=== PATIENT | female | born 1940 | race Caucasian/White ===

== ENCOUNTER → 2016-10-11 | Outpatient (REF) ==
[~2016-10-11] MED LIST: ASPIRIN 81M81 MG/TA2 PO; CELEXA 20MG20 MG/TAB PO; DESYREL 50MG50 MG PO; DITROPAN 5MG TAB5 MG PO; FLONASE NASAL S16 GM NS; FOLIC ACID 40400 MCG PO; KLONOPIN 0.5MG0.5 MG PO; NITROSTAT0.4 MG/TAB SL; PREVACID 15MG15 M1 PO; TEGRETOL 2200 MG/TA1 PO; VITAMIN C500 MG PO
== END ==
LOC: ZLAB.WCH 10:20
DX: Z01.89 Encounter for other specified special examinations (principal)

== ENCOUNTER 2017-02-17 10:39 | Outpatient (RCR) | payer MEDICARE, BC | END 2017-05-18 | LOC: MKS.ESL.PT | DX: G62.89 Other specified polyneuropathies (principal); E11.9 Type 2 diabetes mellitus without complications; M17.0 Bilateral primary osteoarthritis of knee | CPT/HCPCS: G8978-GP; G8979-GP ==

== ENCOUNTER 2017-03-17 10:30 | Outpatient (RCR) | payer MEDICARE | END 2017-05-19 | LOC: MKS.ESL.PT | DX: E11.9 Type 2 diabetes mellitus without complications (principal); G63 Polyneuropathy in diseases classified elsewhere; M17.0 Bilateral primary osteoarthritis of knee ==

== ENCOUNTER → 2017-05-12 | Outpatient (REF) ==
[~2017-05-12] MED LIST changes: +MAGNESIUM250 M1 PO; +PHENERGAN 25 TA25 MG PO; +PLAVIX 75MG TAB75 MG PO; +VITAMIN D32000 I1 PO
[2017-05-12 19:02] LABS: THYROID STIMULATING HORMONE 1.81 uIU/mL (0.465-4.680)
== END ==
LOC: ZLAB.WCH 18:05
PROVIDERS: Internal Medicine
DX: Z01.89 Encounter for other specified special examinations (principal)

== ENCOUNTER → 2017-06-13 | Outpatient (CLI) | payer MEDICARE, BC ==
[~2017-06-13] MED LIST changes: -MAGNESIUM250 M1 PO; -PHENERGAN 25 TA25 MG PO; -PLAVIX 75MG TAB75 MG PO; -VITAMIN D32000 I1 PO
== END ==
LOC: MC.RAD 10:14
DX: Z12.31 Encounter for screening mammogram for malignant neoplasm of breast (principal)

== ENCOUNTER → 2017-08-22 | Outpatient (REF) ==
[2017-08-22 19:04] LABS: THYROID STIMULATING HORMONE 2.42 uIU/mL (0.465-4.680)
[2017-08-22 19:36] LABS: CARBAMAZEPINE (TEGRETOL) 9.6 ug/mL (4.0-12.0)
== END ==
LOC: ZLAB.WCH 18:15
PROVIDERS: Internal Medicine
DX: Z01.89 Encounter for other specified special examinations (principal)

== ENCOUNTER → 2017-12-16 | Outpatient (REF) ==
[2017-12-16 15:15] LABS: THYROID STIMULATING HORMONE 2.17 uIU/mL (0.465-4.680)
[2017-12-16 15:42] LABS: CARBAMAZEPINE (TEGRETOL) 11.6 ug/mL (4.0-12.0)
== END ==
LOC: ZLAB.WCH 14:20
PROVIDERS: Internal Medicine
DX: Z01.89 Encounter for other specified special examinations (principal)

== ENCOUNTER 2018-08-25 13:10 | Emergency (ER) | payer MEDICARE, BC ==
[~2018-08-25] VITALS: Ht 154.9 cm; Wt 90.5 kg
[2018-08-25] MEDS ORDERED: KLONOPIN 0.5MG0.5 MG PO (13:22)
[2018-08-25] MEDS ORDERED: PLAVIX 75MG TAB75 MG PO (13:23)
[2018-08-25] MEDS ORDERED: MAGNESIUM250 M1 PO (13:24)
[2018-08-25] MEDS ORDERED: VITAMIN D32000 I1 PO (13:25)
[2018-08-25 13:49] LABS: BASO # 0.1 (0.0-0.2); BASO % 0.7 % (0.0-2.0); EOS # 0.1 (0.0-0.7); EOS % 1.1 % (0-4.0); GRAN # 7.9 (1.4-6.5); GRAN % 79.5 % (42.2-75.2); HEMATOCRIT 35.3 % (37.0-47.0); HEMOGLOBIN 11.8 g/dl (12.5-16.0); LYMPH # 1.2 (1.2-3.4); LYMPH % 12.4 % (20.0-51.0); MEAN CELL VOLUME 92 fl (80.0-100.0); MEAN CORPUSCULAR HEMOGLOBIN 31 pg (27.0-31.0); MEAN CORPUSCULAR HGB CONC 33 g/dl (33.0-37.0); MEAN PLATELET VOLUME 9.8 fl (7.4-10.4); MONO # 0.6 (0.1-0.6); MONO % 5.5 % (1.7-9.3); PLATELET COUNT 206 K/mm3 (130-400); RED BLOOD COUNT 3.83 M/mm3 (4.10-5.30); REDCELL DISTRIBUTION WIDTH-CV 13.4 % (11.5-14.5)
[2018-08-25 13:52] LABS: PROTHROMBIN TIME 11.9 SECONDS (9.7-12.8)
[2018-08-25 13:56] LABS: ALBUMIN 3.8 gm/dL (3.5-5.0); BILIRUBIN,TOTAL 0.3 mg/dL (0.0-1.0); CALCIUM 9.2 mg/dL (8.4-10.2); CREATININE, serum 0.72 mg/dL (0.52-1.25); POTASSIUM 4.3 mmol/L (3.4-5.0); TOTAL PROTEIN 6.8 gm/dL (6.4-8.2)
[2018-08-25] MEDS ORDERED: PHENERGAN 25 TA25 MG PO (14:33)
[2018-08-25 15:55] VITALS: BP 166/95; PULSE 74; TEMP 98.3
== END 2018-08-25 15:59 | disposition home or self-care (01) ==
LOC: COL.ER 13:10
PROVIDERS: Emergency Medicine
DX: S06.0X9A Concussion with loss of consciousness of unspecified duration, initial encounter (principal); S50.11XA Contusion of right forearm, initial encounter; S80.12XA Contusion of left lower leg, initial encounter; S80.11XA Contusion of right lower leg, initial encounter; E11.9 Type 2 diabetes mellitus without complications; Z79.82 Long term (current) use of aspirin; Z79.02 Long term (current) use of antithrombotics/antiplatelets; Z86.73 Personal history of transient ischemic attack (TIA), and cerebral infarction without residual deficits; W01.198A Fall on same level from slipping, tripping and stumbling with subsequent striking against other object, initial encounter; Y92.009 Unspecified place in unspecified non-institutional (private) residence as the place of occurrence of the external cause
CPT/HCPCS: J2405; J7040

== ENCOUNTER → 2018-09-04 | Outpatient (REF) ==
[~2018-09-04] MED LIST changes: +MAGNESIUM250 M1 PO; +PHENERGAN 25 TA25 MG PO; +PLAVIX 75MG TAB75 MG PO; +VITAMIN D32000 I1 PO
[2018-09-04 19:12] LABS: THYROID STIMULATING HORMONE 2.96 uIU/mL (0.465-4.680)
[2018-09-04 19:28] LABS: CARBAMAZEPINE (TEGRETOL) 8.6 ug/mL (4.0-12.0)
== END ==
LOC: ZLAB.WCH 18:17
PROVIDERS: Internal Medicine
DX: Z01.89 Encounter for other specified special examinations (principal)

== ENCOUNTER → 2018-12-18 | Outpatient (REF) | LOC: ZLAB.WCH 17:15 | DX: Z01.89 Encounter for other specified special examinations (principal) ==

== ENCOUNTER 2020-06-13 10:50 | Inpatient (IN) | payer MEDICARE, BC ==
[2020-06-13] VITALS (7 sets, daily range): BP systolic 89–188; BP diastolic 34–87; PULSE 67–82; TEMP 97.5–98.2
[~2020-06-13] VITALS: Ht 154.9 cm; Wt 69.2 kg
[2020-06-13 11:32] LABS: COLLECTION METHOD CLEAN CATCH
[2020-06-13 11:34] LABS: BASO # 0.1 (0.0-0.2); BASO % 0.8 % (0.0-2.0); EOS # 0.1 (0.0-0.7); EOS % 2.1 % (0-4.0); GRAN # 5.1 (1.4-6.5); GRAN % 76.9 % (42.2-75.2); HEMOGLOBIN 11.3 g/dl (12.5-16.0); LYMPH # 0.8 (1.2-3.4); LYMPH % 12.6 % (20.0-51.0); MEAN CELL VOLUME 93 fl (80.0-100.0); MEAN CORPUSCULAR HEMOGLOBIN 32 pg (27.0-31.0); MEAN CORPUSCULAR HGB CONC 35 g/dl (33.0-37.0); MEAN PLATELET VOLUME 9.4 fl (7.4-10.4); MONO # 0.4 (0.1-0.6); MONO % 6.7 % (1.7-9.3); PLATELET COUNT 193 K/mm3 (130-400)
[2020-06-13 11:35] LABS: HEMATOCRIT 32.4 % (37.0-47.0)
[2020-06-13 11:41] LABS: MUCOUS Present /lpf; PH 6 (5-8); SQUAMOUS EPITHELIAL 0-2 /hpf; URINE APPEARANCE Cloudy; URINE BACTERIA Moderate /hpf; URINE BILIRUBIN Negative (NEGATIVE); URINE BLOOD Negative (NEGATIVE); URINE COLOR Yellow; URINE GLUCOSE Negative (NEGATIVE); URINE KETONE Negative (NEGATIVE); URINE LEUKOCYTE ESTERASE 3+ (NEGATIVE); URINE NITRATE Positive (NEGATIVE); URINE PROTEIN(semi-quant) Negative (NEGATIVE); URINE UROBILINOGEN Negative (NEGATIVE)
[2020-06-13 11:54] LABS: ALBUMIN 3.9 gm/dL (3.5-5.0); BILIRUBIN,TOTAL 0.4 mg/dL (0.0-1.0); CALCIUM 8.8 mg/dL (8.4-10.2); CREATININE, serum 0.75 (0.52-1.25); POTASSIUM 4.3 mmol/L (3.4-5.0); TOTAL PROTEIN 6.9 gm/dL (6.4-8.2)
[2020-06-13] MEDS ORDERED: MASON NATURAL2000 IU PO (12:52)
[2020-06-13] MEDS ORDERED: PROTONIX 40MG T40 MG PO (12:55)
[2020-06-13] MEDS ORDERED: AMARYL4 MG PO (12:56)
[2020-06-13] MEDS ORDERED: TOPROL XL 50MG50 MG PO (12:57)
[2020-06-13] MEDS ORDERED: FLONASE NASAL S16 GM NS (12:58)
[2020-06-13] MEDS ORDERED: PRINIVIL10 MG PO (12:58)
[2020-06-13] MEDS ORDERED: HCTZ 25MG TAB25 MG PO (12:59)
[2020-06-13] MEDS ORDERED: CELEXA40 MG PO (13:00)
[2020-06-13 16:15] LABS: CREATININE, serum 0.67 (0.52-1.25); POTASSIUM 3.9 mmol/L (3.4-5.0)
--- NOTE | 2020-06-13 17:06 | NUR ---
Patient arrived to the floor. She is comfortable in bed now at this time. She is alert and oriented x4. Denies pain. Ambulated to the restroom via 1 assist, was unsteady but managed. She was tearful after as she does not like being dizzy and weak like she is. Medications were reviewed using the pharmacy. She is aware of her POC and that we are monitoring her labs. No other needs were expressed at this time. Call light is in reach.
--- NOTE | 2020-06-13 20:30 | NUR ---
Initial shift assessment done- pt alert/oriented, pleasant, no complaints tonight- denies dizziness at this time-- up to BSC with assist, was glad she was not dizzy this time!,, Tele on, IV fluids of NS at 125cc/hr. Respiratory therapy states they will put her on o2 at 2L/nc during the night since she is a CPAP pt but does not want to wear C/PAP due to our masks.
[2020-06-13 22:11] LABS: CALCIUM 8.4 mg/dL (8.4-10.2); CREATININE, serum 0.8 (0.52-1.25); POTASSIUM 3.5 mmol/L (3.4-5.0)
--- NOTE | 2020-06-13 23:00 | NUR ---
Heather GALVAN notified of recent BMP results from 2199-
[2020-06-14] VITALS (8 sets, daily range): BP systolic 118–187; BP diastolic 62–129; PULSE 67–86; TEMP 97.9–99
--- NOTE | 2020-06-14 05:01 | NUR ---
Quiet night-- denies dizziness, VSS, IV fluids of NS at 100cc/hr
[2020-06-14 05:08] LABS: BASO # 0.1 (0.0-0.2); BASO % 0.8 % (0.0-2.0); EOS # 0.2 (0.0-0.7); EOS % 2.6 % (0-4.0); GRAN # 4.5 (1.4-6.5); HEMOGLOBIN 10.2 g/dl (12.5-16.0); LYMPH # 1.2 (1.2-3.4); LYMPH % 18.4 % (20.0-51.0); MEAN CELL VOLUME 92 fl (80.0-100.0); MEAN CORPUSCULAR HEMOGLOBIN 32 pg (27.0-31.0); MEAN CORPUSCULAR HGB CONC 34 g/dl (33.0-37.0); MEAN PLATELET VOLUME 9.8 fl (7.4-10.4); MONO # 0.5 (0.1-0.6); MONO % 8.4 % (1.7-9.3); PLATELET COUNT 181 K/mm3 (130-400); RED BLOOD COUNT 3.22 M/mm3 (4.10-5.30); REDCELL DISTRIBUTION WIDTH-CV 13.2 % (11.5-14.5)
[2020-06-14 05:09] LABS: HEMATOCRIT 29.7 % (37.0-47.0)
[2020-06-14 05:21] LABS: CREATININE, serum 0.74 (0.52-1.25); POTASSIUM 3.9 mmol/L (3.4-5.0)
--- NOTE | 2020-06-14 09:15 | NUR ---
PT PLEASANT, AOX4, PT TALKATIVE, PT DENIES PAIN OR DISCOMFORT, PT TAKES PILLS WITH WATER, PT ASSESSMENT PERFORMED, VITALS REVIEWED, MEDS GIVEN. IV SITE SHOWS NO DRAINAGE/REDNESS/EDEMA. NO OTHER NEEDS.
[2020-06-14 11:23] LABS: CALCIUM 8.2 mg/dL (8.4-10.2); CREATININE, serum 0.74 (0.52-1.25); POTASSIUM 4.2 mmol/L (3.4-5.0)
--- NOTE | 2020-06-14 15:34 | NUR ---
Health Center Manager met with the patient to complete initial intake. The patient lives with her dog in [place]. The patient has a seated walker, CPAP and a walker that doubles as handles for the toilet. The patient showers on her own but states she likes to have one of her daughter there when she does. The patient has had [facility] in the past. LENORA discussed the benefits of having home health and she was open to sending a referral to [facility] again. The patient's daughter assist with groceries and the patient recently going to the [facility] for meals at lunch time with a friend. The patient's PCP is Dr. Herr and patient has medications delivered from [place]. The patient does not have advanced directives in the EMR but states they are complete and designate her daughters, Ana #[phone] and Delores ([place]). The patient has four other children Jerica #[phone], Nellie lives one block away and visit the patient most frequently, Erna ([place]) and a son Fuentes. The patient began to cry and discussed having some anxiety. Psych consult ordered. LENORA discussed services at the [facility] in [place]. She was agreeable to sending them a referral. LENORA contacted Jenn at [facility] and she confirmed they did have her for services from December to March. Referral faxed. LENORA contacted Nellie with [facility] and faxed a referral. LENORA contacted the patient's daughter, Ana to discuss the discharge plan of home with home health and she was in agreeance. She states she and Delores are the POAs and will email a copy to this SW. LENORA collaborated the above information with the patient's nurse and the PA.
--- NOTE | 2020-06-14 17:10 | NUR ---
PT DISTRESSED WITH PERSONAL FAMILY ISSUES, PSYCH CONSULTED AND VISITED, PT HAD HYPERTENSIVE EPISODE, HTN MEDS CONTINUED. PT DENIES PAIN OR DISCOMFORT, VITALS CURRENTLY STABLE, SUGARS STABLE, PT HAS GOOD APPETITE AND HAS GOOD ORAL INTAKE. IV FLUIDS DC'D. NO OTHER NEEDS.
--- NOTE | 2020-06-14 20:30 | NUR ---
Initial shift assessment done- states feeling better tonight,, states "had a rough day " VSS, Tele on, Up to bathroom with assist- denies being dizzy- states has a slight headache but it not "too bad" states she just wants to get some sleep- denies need for any pain meds
[2020-06-15] VITALS (13 sets, daily range): BP systolic 106–214; BP diastolic 49–103; PULSE 65–83; TEMP 97.8–99.1
--- NOTE | 2020-06-15 05:39 | NUR ---
Quiet night- Up 3 times to BR to void, denies dizziness-,
[2020-06-15 07:29] LABS: BASO # 0.1 (0.0-0.2); BASO % 0.8 % (0.0-2.0); EOS # 0.2 (0.0-0.7); EOS % 2.7 % (0-4.0); GRAN # 4.8 (1.4-6.5); GRAN % 73.6 % (42.2-75.2); HEMOGLOBIN 12.1 g/dl (12.5-16.0); LYMPH % 14.7 % (20.0-51.0); MEAN CELL VOLUME 91 fl (80.0-100.0); MEAN CORPUSCULAR HEMOGLOBIN 32 pg (27.0-31.0); MEAN CORPUSCULAR HGB CONC 35 g/dl (33.0-37.0); MEAN PLATELET VOLUME 9.5 fl (7.4-10.4); MONO # 0.5 (0.1-0.6); MONO % 7.3 % (1.7-9.3); PLATELET COUNT 222 K/mm3 (130-400); RED BLOOD COUNT 3.81 M/mm3 (4.10-5.30); REDCELL DISTRIBUTION WIDTH-CV 13.1 % (11.5-14.5)
[2020-06-15 07:31] LABS: HEMATOCRIT 34.8 % (37.0-47.0)
[2020-06-15 07:44] LABS: CALCIUM 8.9 mg/dL (8.4-10.2); CREATININE, serum 0.69 (0.52-1.25)
--- NOTE | 2020-06-15 09:00 | NUR ---
PT DISTRESSED THIS MORNING, TEARFUL, C/O HEADACHE, CALLED [facility] AND TYLENOL ORDERED AND ADMINISTERED, PT C/0 NAUSEA AND ZOFRAN ORDERED AND GIVEN. BP HIGH, PHYSICIAN AWARE ADDED NORVASC, GAVE ALL OTHER MEDICATIONS, PT CALMED DOWN, GATHERED COVID SWAB FOR PLACEMENT, PT AOX4, ASSESSMENT PERFORMED, PT EASILY UPSET. NO OTHER NEEDS.
--- NOTE | 2020-06-15 09:36 | NUR ---
Field Underwriter staffed with Hospitalist regarding the patient's discharge and needing post acute rehab. SW met with the patient to discuss post acute rehab and review [email or web address]'s list of facilites. [facility] first [facility] Referral sent. SW contacted the respective facilities to inform them of the referral. Covid test was ordered. SW collaborated the above information with the patient's nurse.
--- NOTE | 2020-06-15 11:24 | NUR ---
Sada from [facility] reports they can accept the patient for post acute rehab.
--- NOTE | 2020-06-15 11:46 | NUR ---
ART RUSSO REPORTED HIGH BP'S, THIS INFORMATION REPORTED TO [facility].
--- NOTE | 2020-06-15 12:13 | NUR ---
Cristino from [facility] reports they can take the patient and it is her first choice.
--- NOTE | 2020-06-15 12:23 | NUR ---
BP WENT DOWN TO 147/58
--- NOTE | 2020-06-15 17:33 | NUR ---
PT AOX4, PT HAD SYSTOLIC OF 181 SO HYDRALAZINE PRN GIVEN. PT EDUCATED THAT WE CUT THE DOSE IN HALF, PT STILL SEEMED NERVOUS ABOUT TAKING IT. PT BP CAME DOWN TO 117/58. PT EDUCATED TO USE CALL LIGHT IF PT FEELS LIGHT HEADED OR DIZZY. PT GIVEN ATIVAN WHEN FEELING ANXIOUS EARLIER AND PT STATED THAT REALLY HELPED HER. PT VITALS STABLE AT THIS TIME, DENIES PAIN/DISCOMFORT AT THIS TIME. NO OTHER NEEDS.
--- NOTE | 2020-06-15 19:28 | NUR ---
PATIENT AMBULATED TO BATHROOM PER THEIR REQUEST. VOIDED AND PASS FLATUS. TELE IN PLACE, SALINE LOCK IN PLACE TO LAC WITHOUT REDNESS/SWELLING.
--- NOTE | 2020-06-15 19:35 | NUR ---
PATIENT UP AMBULATING WITH NO UNSTEADINESS. INITIALLY REPORTED SOME NAUSEA AND FEELING ANXIOUS DURING CHANGE OF SHIFT REPORT THAT SUBSIDED AFTER VOIDING IN BATHROOM AND PASSING FLATUS AND LAID DOWN IN BED. PATIENT ALSO REPORTED HAD DRANK THEIR SUPPER DRINKS "TOO FAST". DENIES CHEST PAIN/SHORTNESS OF BREATH AT THIS TIME.
[2020-06-16 03:08] VITALS: BP 139/55; PULSE 61; TEMP 98.7
[2020-06-16 03:26] VITALS: BP 114/53; PULSE 57; TEMP 98
--- NOTE | 2020-06-16 04:30 | NUR ---
PATIENT RESTING WITH EYES CLOSED, BREATHING NONLABORED AND EVEN, OXYGEN CONTINUES PER NASAL CANNULA. TELE IN PLACE.
--- NOTE | 2020-06-16 07:05 | NUR ---
CHANGE OF SHIFT REPORT GIVEN TO DAY SHIFT NURSECHRISTEN. TELE IN PLACE. PATIENT WITH NO CURRENT NEEDS OR C/O REPORTED.
[2020-06-16 07:11] LABS: BASO # 0.1 (0.0-0.2); BASO % 0.9 % (0.0-2.0); EOS # 0.2 (0.0-0.7); EOS % 2.8 % (0-4.0); GRAN # 4.7 (1.4-6.5); GRAN % 68.2 % (42.2-75.2); HEMATOCRIT 30.5 % (37.0-47.0); HEMOGLOBIN 10.6 g/dl (12.5-16.0); LYMPH # 1.3 (1.2-3.4); LYMPH % 18.9 % (20.0-51.0); MEAN CELL VOLUME 93 fl (80.0-100.0); MEAN CORPUSCULAR HEMOGLOBIN 32 pg (27.0-31.0); MEAN CORPUSCULAR HGB CONC 35 g/dl (33.0-37.0); MEAN PLATELET VOLUME 9.4 fl (7.4-10.4); MONO # 0.6 (0.1-0.6); MONO % 8.6 % (1.7-9.3); PLATELET COUNT 198 K/mm3 (130-400); RED BLOOD COUNT 3.27 M/mm3 (4.10-5.30); REDCELL DISTRIBUTION WIDTH-CV 13.2 % (11.5-14.5)
[2020-06-16 07:24] LABS: CALCIUM 8.5 mg/dL (8.4-10.2); CREATININE, serum 0.69 (0.52-1.25); POTASSIUM 4.3 mmol/L (3.4-5.0)
[2020-06-16 07:31] VITALS: BP 138/60; PULSE 58; TEMP 98.1
--- NOTE | 2020-06-16 09:06 | NUR ---
PT SITTING UP ON SIDE OF BED FOR BREAKFAST. AM MEDS GIVEN ORDERED. ASSESSMENTS COMPLETE. VSS, SEE INTERVENTIONS.
--- NOTE | 2020-06-16 09:43 | NUR ---
Dialysis Social Worker attended clinical rounds with the team. The patient's anticipated discharge tomorrow, 06/17. LENORA contacted Cristino with [facility] to provide this update. LENORA to fax updates to Cristino. LENORA contacted the patient's daughter, Ana to follow up with the plan. She was agreeable. LENORA contacted Jenn with [facility] to provide the above update. LENORA collaborated the above information with the patient's nurse.
--- NOTE | 2020-06-16 10:35 | NUR ---
Initial visit; Patient thanked Rn Outpatient Surgery for visiting with her and offering encouragement, prayer and God's blessings.
[2020-06-16 11:30] VITALS: BP 131/58; PULSE 65; TEMP 98.3
[2020-06-16 15:50] VITALS: BP 129/53; PULSE 68; TEMP 98.8
[2020-06-16 19:49] VITALS: BP 187/85; PULSE 78; TEMP 99
[2020-06-17] VITALS: BP 165/74; PULSE 77; TEMP 98.5
[2020-06-17 04:00] VITALS: BP 137/72; PULSE 61; TEMP 98.3
--- NOTE | 2020-06-17 06:20 | NUR ---
PATIENT SLEEPING IN BED.
[2020-06-17 06:42] LABS: CALCIUM 8.7 mg/dL (8.4-10.2); CREATININE, serum 0.63 (0.52-1.25); POTASSIUM 4.3 mmol/L (3.4-5.0)
[2020-06-17 07:40] VITALS: BP 156/77; PULSE 66; TEMP 97.7
--- NOTE | 2020-06-17 08:59 | NUR ---
PATIENT RESTING IN BED. COMPLAINS OF DIZZINESS BP IS SLIGHTLY ELEVATED. MEDICATIONS HAVE BEEN PROVIDED SHE WILL CALL FOR ASSISTANCE WHEN GET UP NEXT
[2020-06-17] MEDS ORDERED: NORVASC 10MG10 MG PO (10:00)
[2020-06-17] MEDS ORDERED: ZOLOFT 25MG25 MG PO (10:02)
[2020-06-17] MEDS ORDERED: ATARAX 10MG10 MG/TAB PO (10:03)
[2020-06-17 11:13] VITALS: BP 161/80; PULSE 66; TEMP 98.9
[2020-06-17 11:39] VITALS: BP 161/80; PULSE 66; TEMP 98.9
--- NOTE | 2020-06-17 13:15 | NUR ---
PATIENT DISCHARGED WITH BELONGINGS. SHE DECLINES FURTHER QUESTIONS. PAPERWORK SENT WITH PATIENT.
--- NOTE | 2020-06-17 14:02 | NUR ---
LENORA informed that patient would be going back to [facility] today 06/17/20. SW contacted staff at [facility] to provide DC information. Staff provided that patient will be picked up at 1pm today 06/17/20. Documentation faxed to facility and daughter Ana informed of plan. Nothing further.
--- NOTE | 2020-06-17 16:23 | NUR ---
SW met with patient to review IM form. Patient agreed, understood and signed form. Document placed in chart. Nothing further.
--- NOTE | 2020-06-18 12:22 | NUR ---
LENORA received a call from Cristino at [facility] about patient not receiving a hard script for her Kolozapam. SW contacted provider and informed him, and provider informed this SW that that medications was stopped. LENORA called and informed Cristino.
== END 2020-06-17 13:10 | DRG 690 ==
LOC: COL.ER 10:50 → MEDICAL 12:45
PROVIDERS: Family Medicine; Physician Assistant; ADMIT Internal Medicine
DX: N30.90 Cystitis, unspecified without hematuria (principal); E87.1 Hypo-osmolality and hyponatremia; F32.9 Major depressive disorder, single episode, unspecified; G47.33 Obstructive sleep apnea (adult) (pediatric); E11.9 Type 2 diabetes mellitus without complications; N32.81 Overactive bladder; F41.1 Generalized anxiety disorder; T50.2X5A Adverse effect of carbonic-anhydrase inhibitors, benzothiadiazides and other diuretics, initial encounter; K21.9 Gastro-esophageal reflux disease without esophagitis; I10 Essential (primary) hypertension; Z90.710 Acquired absence of both cervix and uterus; Z79.82 Long term (current) use of aspirin; Z87.891 Personal history of nicotine dependence; Z90.89 Acquired absence of other organs; Z86.73 Personal history of transient ischemic attack (TIA), and cerebral infarction without residual deficits; Z90.49 Acquired absence of other specified parts of digestive tract
CPT/HCPCS: 99222-AI; 99232-AI; 99233-AI; 99239; A9585; J0360; J0696; J1650; J1815; J2060; J2405; J7030

== ENCOUNTER 2020-09-23 13:48 | Emergency (ER) | payer MEDICARE, BC ==
[~2020-09-23] VITALS: Ht 154.9 cm; Wt 86.4 kg
[~2020-09-23 13:48] MED LIST changes: +AMARYL4 MG PO; +ATARAX 10MG10 MG/TAB PO; +CELEXA40 MG PO; +HCTZ 25MG TAB25 MG PO; +MASON NATURAL2000 IU PO; +NORVASC 10MG10 MG PO; +PRINIVIL10 MG PO; +PROTONIX 40MG T40 MG PO; +TOPROL XL 50MG50 MG PO; +ZOLOFT 25MG25 MG PO
[2020-09-23 13:49] VITALS: TEMP 97.5
[2020-09-23 14:46] LABS: BASO # 0.1 (0.0-0.2); EOS # 0.2 (0.0-0.7); EOS % 2.2 % (0-4.0); GRAN % 73.2 % (42.2-75.2); HEMATOCRIT 37.8 % (37.0-47.0); HEMOGLOBIN 12.6 g/dl (12.5-16.0); LYMPH # 1.1 (1.2-3.4); LYMPH % 16.6 % (20.0-51.0); MEAN CELL VOLUME 96 fl (80.0-100.0); MEAN CORPUSCULAR HEMOGLOBIN 32 pg (27.0-31.0); MEAN CORPUSCULAR HGB CONC 33 g/dl (33.0-37.0); MEAN PLATELET VOLUME 10.4 fl (7.4-10.4); MONO # 0.4 (0.1-0.6); MONO % 6.1 % (1.7-9.3); PLATELET COUNT 195 K/mm3 (130-400); RED BLOOD COUNT 3.96 M/mm3 (4.10-5.30); REDCELL DISTRIBUTION WIDTH-CV 12.5 % (11.5-14.5)
[2020-09-23 14:48] LABS: ANION GAP 7 mmol/L (7-16); BLOOD UREA NITROGEN 27 mg/dL (7-17); CALCIUM 9.1 mg/dL (8.4-10.2); CARBON DIOXIDE 30 mmol/L (22-30); CHLORIDE 96 mmol/L (98-107); CREATININE, serum 0.84 (0.52-1.25); GLUCOSE 170 mg/dL (74-106); POTASSIUM 4.3 mmol/L (3.4-5.0); SODIUM 133 mmol/L (137-145)
[2020-09-23 15:00] LABS: TROPONIN-I < 0.012 ng/mL (0.000-0.035)
[2020-09-23 15:11] LABS: COLLECTION METHOD CLEAN CATCH
[2020-09-23 15:25] LABS: MUCOUS Present /lpf; PH 7 (5-8); SQUAMOUS EPITHELIAL 0-2 /hpf; URINE APPEARANCE Hazy; URINE BACTERIA Rare /hpf; URINE BILIRUBIN Negative (NEGATIVE); URINE BLOOD Negative (NEGATIVE); URINE COLOR Yellow; URINE GLUCOSE Negative (NEGATIVE); URINE KETONE Negative (NEGATIVE); URINE LEUKOCYTE ESTERASE Negative (NEGATIVE); URINE NITRATE Negative (NEGATIVE); URINE PROTEIN(semi-quant) Negative (NEGATIVE); URINE RBC 0-2 /hpf; URINE UROBILINOGEN Negative (NEGATIVE)
[2020-09-23 16:21] VITALS: BP 115/54; PULSE 65
[2020-09-23] MEDS ORDERED: CEPHALEXIN500 M1 PO (16:34)
== END 2020-09-23 17:10 | disposition home or self-care (01) ==
LOC: COL.ER 13:48
PROVIDERS: Emergency Medicine
DX: E11.65 Type 2 diabetes mellitus with hyperglycemia (principal); N39.0 Urinary tract infection, site not specified; R55 Syncope and collapse; Z86.73 Personal history of transient ischemic attack (TIA), and cerebral infarction without residual deficits; Z88.2 Allergy status to sulfonamides; Z88.8 Allergy status to other drugs, medicaments and biological substances; Z87.891 Personal history of nicotine dependence; Z79.82 Long term (current) use of aspirin